=== PATIENT | female | born 1930 | race Caucasian/White ===

== ENCOUNTER 2017-09-23 19:13 | Inpatient (IN) | payer MEDICARE, OTHER ==
[~2017-09-23] VITALS: Ht 165.1 cm; Wt 47.9 kg
[2017-09-23 19:34] VITALS: BP 167/87
[2017-09-23] MEDS ORDERED: ALBUTEROL/IPRATROPIUM 2.5MG/0.5MG, 3 ML ONE ×2 (19:43→23:30)
[2017-09-23] MEDS ORDERED: ONDANSETRON ODT 4 MG PO PRN (21:00)
[2017-09-23] MEDS ORDERED: DOCUSATE 100 MG CAPSULE PO PRN (21:00)
[2017-09-23] MEDS ORDERED: VANCOMYCIN PER PHARMACY MC PRN (21:00)
[2017-09-23] MEDS ORDERED: hydrALAzine 20 MG/ML, 1ML IVPush PRN (21:00)
[2017-09-23] MEDS ORDERED: ENOXAPARIN 40 MG/0.4 ML SQ SCH (21:00)
[2017-09-23] MEDS ORDERED: ACETAMINOPHEN 325 MG TABLET PO PRN (21:00)
[2017-09-23] MEDS ORDERED: PLEASE ENTER ALLERGIES MC SCH (21:00)
[2017-09-23] MEDS ORDERED: HYDR-3240 PO (21:24)
[2017-09-23] MEDS ORDERED: OMEP20TA62 PO (21:24)
[2017-09-23] MEDS ORDERED: ALBU8.5H8 INH (21:24)
[2017-09-23] MEDS ORDERED: LORA0.5T PO (21:24)
[2017-09-23] MEDS ORDERED: FLUT1AER INH (21:24)
[2017-09-23] MEDS ORDERED: TRAM50TA2 PO (21:24)
[2017-09-23] MEDS ORDERED: DIPH25CA61 PO (21:24)
[2017-09-23] MEDS ORDERED: DILT-8 PO (21:24)
[2017-09-23 22:04] LABS: CREATININE 0.56 mg/dL (0.55-1.02)
[2017-09-23] MEDS ORDERED: VANCOMYCIN PMX 1GM/200ML 200 ML IV SCH (22:30)
[2017-09-23] MEDS ORDERED: PHARMACOKINETIC CONSULTATION MC ONE (22:30)
[2017-09-23] MEDS ORDERED: PHARMACOKINETIC MONITORING MC PRN (22:30)
[2017-09-23] MEDS: ALBUTEROL/IPRATROPIUM 2.5MG/0.5MG, 3 ML NPPB SCH (23:30)
[2017-09-24 00:21] VITALS: BP 159/72
[2017-09-24] MEDS: PIPERACILLIN/TAZO/PMX 3.375GM 50 ML IV SCH ×2 (02:33→09:06)
[2017-09-24 05:29] LABS: BASOPHILS % (AUTO) 0 % (0-1); EOSINOPHILS % (AUTO) 0 % (1-7); LYMPHOCYTES # (AUTO) 0.42 x10^3/uL (1-3.4); LYMPHOCYTES % (AUTO) 4 % (22-44); MD NO; MEAN CORPUSCULAR HEMOGLOBIN 30.9 pg (27.0-34.8); MEAN CORPUSCULAR HGB CONC 32.9 g/dL (32.4-35.8); MONOCYTES # (AUTO) 0.47 x10^3/uL (0.2-0.8); MONOCYTES % (AUTO) 4 % (2-9); NEUTROPHILS # (AUTO) 10.18 x10^3/uL (1.8-6.8); NEUTROPHILS % (AUTO) 92 % (42-75); PLATELET COUNT 225 x10^3/uL (130-400); RED BLOOD COUNT 3.93 x10^6/uL (3.82-5.3); RED CELL DISTRIBUTION WIDTH 13.9 % (9.6-15.2)
[2017-09-24 05:42] LABS: ALBUMIN 2.7 g/dL (3.4-5.0); CALCIUM 8.4 mg/dL (8.5-10.1); CHLORIDE 94 mmol/L (98-107)
[2017-09-24 05:50] LABS: ALANINE AMINOTRANSFERASE 21 U/L (12-78); ALKALINE PHOSPHATASE 61 U/L (45-117); BILIRUBIN,TOTAL 0.5 mg/dL (0.2-1.0); CREATININE 0.57 mg/dL (0.55-1.02); TOTAL PROTEIN 6.4 g/dL (6.4-8.2)
[2017-09-24] MEDS: ALBUTEROL/IPRATROPIUM 2.5MG/0.5MG, 3 ML NPPB SCH ×5 (05:50→23:04)
[2017-09-24 06:05] LABS: ANION GAP 5 mmol/L (5-15)
[2017-09-24 08:16] VITALS: BP 163/79
[2017-09-24] MEDS: ISOSORBIDE DINITRATE 10 MG TABLET PO SCH ×3 (09:00→21:25)
[2017-09-24] MEDS: HEPARIN 5,000 UNITS/ML, 1ML SQ SCH ×2 (09:06→21:23)
[2017-09-24] MEDS ORDERED: LEVOFLOXACIN/PMX 750MG/150ML 150 ML IV SCH (12:00)
[2017-09-24] MEDS: LORazepam 0.5MG TABLET PO PRN ×2 (13:17→21:24)
[2017-09-24 13:32] VITALS: BP 163/89
[2017-09-24 15:53] LABS: CLOSTRIDIUM DIFFICILE ANTIGEN NEGATIVE; CLOSTRIDIUM DIFFICILE TOXIN NEGATIVE (Negative)
[2017-09-24] MEDS: CARVEDILOL 3.125 MG TABLET PO SCH (18:35)
[2017-09-24 19:34] VITALS: BP 126/75
[2017-09-24] MEDS: DOXYCYCLINE 100MG CAP PO SCH (21:24)
[2017-09-24] MEDS: AMOXICILLIN 500 MG CAPSULE PO SCH (21:24)
[2017-09-25 01:41] VITALS: BP 131/73
[2017-09-25] MEDS: ALBUTEROL/IPRATROPIUM 2.5MG/0.5MG, 3 ML NPPB SCH ×6 (03:22→22:29)
[2017-09-25 06:38] VITALS: BP 154/86
[2017-09-25] MEDS: CARVEDILOL 3.125 MG TABLET PO SCH ×2 (06:40→17:43)
[2017-09-25 08:24] VITALS: BP 117/72
[2017-09-25] MEDS: AMOXICILLIN 500 MG CAPSULE PO SCH ×2 (08:51→21:02)
[2017-09-25] MEDS: HEPARIN 5,000 UNITS/ML, 1ML SQ SCH ×2 (08:51→21:03)
[2017-09-25] MEDS: DOXYCYCLINE 100MG CAP PO SCH ×2 (08:51→21:02)
[2017-09-25] MEDS: ISOSORBIDE DINITRATE 10 MG TABLET PO SCH ×3 (08:52→21:02)
[2017-09-25] MEDS: LORazepam 0.5MG TABLET PO PRN (12:13)
[2017-09-25 14:00] VITALS: BP 151/80
[2017-09-25 19:38] VITALS: BP 101/59
[2017-09-25] MEDS ORDERED: CALCIUM CARBONATE 500 MG TAB.CHEW PO PRN ×2 (23:00→23:10)
[2017-09-26 00:20] VITALS: BP 117/69
[2017-09-26] MEDS: ALBUTEROL/IPRATROPIUM 2.5MG/0.5MG, 3 ML NPPB SCH ×4 (02:27→20:38)
[2017-09-26] MEDS: CARVEDILOL 3.125 MG TABLET PO SCH ×2 (05:57→17:09)
[2017-09-26 08:08] VITALS: BP 121/71
[2017-09-26] MEDS: AMOXICILLIN 500 MG CAPSULE PO SCH ×3 (08:51→20:57)
[2017-09-26] MEDS: ISOSORBIDE DINITRATE 10 MG TABLET PO SCH ×3 (08:52→20:41)
[2017-09-26] MEDS: HEPARIN 5,000 UNITS/ML, 1ML SQ SCH ×2 (08:52→20:38)
[2017-09-26] MEDS: DOXYCYCLINE 100MG CAP PO SCH ×2 (08:52→20:40)
[2017-09-26] MEDS ORDERED: SODIUM CHLORIDE 0.9% 1,000 ML IV SCH (11:30)
[2017-09-26] MEDS: LORazepam 0.5MG TABLET PO PRN ×3 (11:40→19:51)
[2017-09-26] MEDS ORDERED: ALBUTEROL/IPRATROPIUM 2.5MG/0.5MG, 3 ML ONE (13:52)
[2017-09-26 15:58] VITALS: BP 108/63
[2017-09-26 18:47] VITALS: BP 117/62
[2017-09-27 03:34] VITALS: BP 143/83
[2017-09-27] MEDS: CARVEDILOL 3.125 MG TABLET PO SCH ×2 (05:56→17:40)
[2017-09-27 07:51] VITALS: BP 137/71
[2017-09-27] MEDS: DOXYCYCLINE 100MG CAP PO SCH ×2 (08:21→20:25)
[2017-09-27] MEDS: AMOXICILLIN 500 MG CAPSULE PO SCH ×2 (08:21→20:25)
[2017-09-27] MEDS: HEPARIN 5,000 UNITS/ML, 1ML SQ SCH ×2 (08:22→20:25)
[2017-09-27] MEDS: ISOSORBIDE DINITRATE 10 MG TABLET PO SCH ×3 (08:22→20:23)
[2017-09-27 10:20] LABS: O2 FLOW 3.5 L/min
[2017-09-27] MEDS: ALBUTEROL/IPRATROPIUM 2.5MG/0.5MG, 3 ML NPPB SCH ×2 (10:32→20:39)
[2017-09-27 14:20] VITALS: BP 160/80
[2017-09-27] MEDS: LORazepam 0.5MG TABLET PO PRN ×2 (15:19→20:24)
[2017-09-27] MEDS ORDERED: FLUTICASONE/VILANTEROL 100-25MCG/INH INH ONE (16:12)
[2017-09-27] MEDS ORDERED: POTASSIUM CHLORIDE 20 MEQ TAB.ER.PRT PO ONE (16:30)
[2017-09-27] MEDS: methylPREDNISolone SOD SUCC 40 MG/ML IV SCH (17:39)
[2017-09-27] MEDS: FUROSEMIDE 20 MG/2 ML IV SCH (17:40)
[2017-09-27 19:49] VITALS: BP 152/71
[2017-09-28] VITALS (10 sets, daily range): BP systolic 78–134; BP diastolic 48–77
[2017-09-28] MEDS: methylPREDNISolone SOD SUCC 40 MG/ML IV SCH ×3 (00:50→17:27)
[2017-09-28] MEDS: CARVEDILOL 3.125 MG TABLET PO SCH ×2 (06:00→17:27)
[2017-09-28 06:15] LABS: ANION GAP 3 mmol/L (5-15); CALCIUM 9.2 mg/dL (8.5-10.1); CHLORIDE 91 mmol/L (98-107)
[2017-09-28] MEDS: ALBUTEROL/IPRATROPIUM 2.5MG/0.5MG, 3 ML NPPB SCH ×4 (08:33→19:58)
[2017-09-28] MEDS: HEPARIN 5,000 UNITS/ML, 1ML SQ SCH ×2 (08:52→22:10)
[2017-09-28] MEDS: FUROSEMIDE 20 MG/2 ML IV SCH ×2 (08:52→17:27)
[2017-09-28] MEDS: DOXYCYCLINE 100MG CAP PO SCH ×2 (08:52→21:00)
[2017-09-28] MEDS: ISOSORBIDE DINITRATE 10 MG TABLET PO SCH ×3 (08:53→21:00)
[2017-09-28] MEDS: AMOXICILLIN 500 MG CAPSULE PO SCH ×2 (08:57→21:00)
[2017-09-28] MEDS: FLUTICASONE/VILANTEROL 100-25MCG/INH INH SCH (08:58)
[2017-09-28] MEDS ORDERED: KETOROLAC 30 MG/1 ML IM PRN (20:30)
[2017-09-28] MEDS: LORazepam 2 MG/ML, 1ML IVPush PRN (22:09)
[2017-09-29] MEDS: methylPREDNISolone SOD SUCC 40 MG/ML IV SCH ×2 (01:00→08:47)
[2017-09-29 02:08] VITALS: BP 119/72
[2017-09-29 05:36] LABS: ANION GAP 3 mmol/L (5-15); CALCIUM 8.7 mg/dL (8.5-10.1); CHLORIDE 93 mmol/L (98-107)
[2017-09-29 05:37] LABS: CREATININE 0.56 mg/dL (0.55-1.02)
[2017-09-29] MEDS: CARVEDILOL 3.125 MG TABLET PO SCH ×2 (05:58→18:00)
[2017-09-29 06:51] VITALS: BP 125/74
[2017-09-29 06:59] LABS: BASOPHILS % (AUTO) 0 % (0-1); EOSINOPHILS % (AUTO) 0 % (1-7); LYMPHOCYTES # (AUTO) 0.66 x10^3/uL (1-3.4); LYMPHOCYTES % (AUTO) 7 % (22-44); MD NO; MEAN CORPUSCULAR HEMOGLOBIN 30.9 pg (27.0-34.8); MEAN CORPUSCULAR HGB CONC 33.5 g/dL (32.4-35.8); MEAN CORPUSCULAR VOLUME 92.4 fL (80-100); MEAN PLATELET VOLUME 7.7 fL (7.4-10.4); MONOCYTES # (AUTO) 0.11 x10^3/uL (0.2-0.8); MONOCYTES % (AUTO) 1 % (2-9); NEUTROPHILS # (AUTO) 8.98 x10^3/uL (1.8-6.8); NEUTROPHILS % (AUTO) 92 % (42-75); PLATELET COUNT 212 x10^3/uL (130-400); RED BLOOD COUNT 4.06 x10^6/uL (3.82-5.3); RED CELL DISTRIBUTION WIDTH 14.2 % (9.6-15.2)
[2017-09-29] MEDS: ALBUTEROL/IPRATROPIUM 2.5MG/0.5MG, 3 ML NPPB SCH ×4 (07:00→20:00)
[2017-09-29] MEDS: DOXYCYCLINE 100MG CAP PO SCH ×2 (08:47→22:21)
[2017-09-29] MEDS: FUROSEMIDE 20 MG/2 ML IV SCH (08:47)
[2017-09-29] MEDS: FLUTICASONE/VILANTEROL 100-25MCG/INH INH SCH (08:47)
[2017-09-29] MEDS: HEPARIN 5,000 UNITS/ML, 1ML SQ SCH ×2 (08:48→22:22)
[2017-09-29] MEDS: AMOXICILLIN 500 MG CAPSULE PO SCH ×2 (08:48→22:21)
[2017-09-29] MEDS: ISOSORBIDE DINITRATE 10 MG TABLET PO SCH ×3 (08:48→22:21)
[2017-09-29 12:28] VITALS: BP 120/77
[2017-09-29] MEDS ORDERED: PROPOFOL 10 MG/ML, 20ML ONE (16:24)
[2017-09-29] MEDS ORDERED: PROMETHAZINE 25 MG/ML, 1ML IV PRN (16:30)
[2017-09-29] MEDS ORDERED: ALBUTEROL/IPRATROPIUM 2.5MG/0.5MG, 3 ML NPPB PRN (16:30)
[2017-09-29] MEDS ORDERED: PROMETHAZINE 12.5 MG SUPP PR PRN (16:30)
[2017-09-29] MEDS ORDERED: ONDANSETRON ODT 8 MG PO PRN (16:30)
[2017-09-29] MEDS ORDERED: PROMETHAZINE 25 MG SUPP PR PRN (16:30)
[2017-09-29] MEDS ORDERED: FENTANYL PF 100 MCG/2ML IV PRN (16:30)
[2017-09-29] MEDS ORDERED: ALBUTEROL SULFATE 2.5 MG/3 ML NPPB PRN (16:30)
[2017-09-29] MEDS ORDERED: LABETALOL 5MG/ML, 20ML IV PRN (16:30)
[2017-09-29] MEDS ORDERED: hydrALAzine 20 MG/ML, 1ML IV PRN (16:30)
[2017-09-29] MEDS ORDERED: OMNIPAQUE 350 MG/ML, 100ML BOTTLE ONE (18:00)
[2017-09-29 19:33] VITALS: BP 125/73
[2017-09-29 22:19] VITALS: BP 111/73
[2017-09-29] MEDS: LORazepam 2 MG/ML, 1ML IVPush PRN (23:50)
[2017-09-30 01:04] VITALS: BP 105/64
[2017-09-30 06:44] VITALS: BP 125/75
[2017-09-30] MEDS: CARVEDILOL 3.125 MG TABLET PO SCH (06:47)
[2017-09-30 07:33] VITALS: BP 114/69
[2017-09-30] MEDS: ALBUTEROL/IPRATROPIUM 2.5MG/0.5MG, 3 ML NPPB SCH ×2 (08:57→11:30)
[2017-09-30] MEDS: FLUTICASONE/VILANTEROL 100-25MCG/INH INH SCH (09:00)
[2017-09-30] MEDS: DOXYCYCLINE 100MG CAP PO SCH (09:08)
[2017-09-30] MEDS: AMOXICILLIN 500 MG CAPSULE PO SCH (09:08)
[2017-09-30] MEDS: ISOSORBIDE DINITRATE 10 MG TABLET PO SCH (09:09)
[2017-09-30] MEDS: HEPARIN 5,000 UNITS/ML, 1ML SQ SCH (09:09)
[2017-09-30] MEDS: LORazepam 0.5MG TABLET PO PRN (12:00)
[2017-09-30 13:15] VITALS: BP 112/66
== END 2017-09-30 13:52 | disposition home or self-care (01) | DRG 177 ==
LOC: 4EST 19:32
PROVIDERS: ADMIT Internal Medicine; ATTEND Internal Medicine
PROC: 0DJ08ZZ Inspection of Upper Intestinal Tract, Via Natural or Artificial Opening Endoscopic (ICD-10-PCS; principal; 2017-09-29 16:30)
DX: J15.6 Pneumonia due to other Gram-negative bacteria (principal); J96.20 Acute and chronic respiratory failure, unspecified whether with hypoxia or hypercapnia; I11.0 Hypertensive heart disease with heart failure; I50.9 Heart failure, unspecified; R13.10 Dysphagia, unspecified; I08.1 Rheumatic disorders of both mitral and tricuspid valves; Z99.81 Dependence on supplemental oxygen; J44.0 Chronic obstructive pulmonary disease with (acute) lower respiratory infection; J44.1 Chronic obstructive pulmonary disease with (acute) exacerbation; Z51.5 Encounter for palliative care; F41.9 Anxiety disorder, unspecified; K21.0 Gastro-esophageal reflux disease with esophagitis; Z80.0 Family history of malignant neoplasm of digestive organs; Z82.3 Family history of stroke; Z82.49 Family history of ischemic heart disease and other diseases of the circulatory system; Z86.73 Personal history of transient ischemic attack (TIA), and cerebral infarction without residual deficits; Z87.891 Personal history of nicotine dependence
CPT/HCPCS: 0399T; 36415; 36600; 71045; 74177; 74220; 74230; 80048; 80053; 82565; 82803; 83735; 83880; 84520; 85025; 87324; 93306; 94640; J1644; J1650; J1885; J2543; J2704; J3370; J7620; Q9967; J1940; J2060; J2920; J7030